=== PATIENT | female | born 1940 | race Caucasian/White ===

== ENCOUNTER 2017-12-11 17:41 | Inpatient (IN) | payer MEDICARE, OTHER ==
[~2017-12-11] VITALS: Ht 162.6 cm; Wt 73.6 kg
--- NOTE | ~2017-12-11 | HP ---
PATIENT: LUCILA NGUYEN MEDICAL RECORD: [id number] ACCOUNT: [id number] LOCATION:[place] [address] : 44 ADMISSION DATE: 12/11/17 PCP: ANDREY SWANN MD HISTORY AND PHYSICAL EXAMINATION REASON FOR ADMISSION: Cough and fever. HISTORY OF PRESENT ILLNESS: The patient is a 77-year-old female, a patient of Dr. Andrey Swann, with a history of valvular heart disease. She states she had her aortic valve cleaned out when she was 28 and then had replacement in 1998 at [facility]. There is a question of aortic valve, mitral valve surgery as well but need to confirm that. Nonetheless, she is on Coumadin. She had lots of family in for the last week with little ones. She had cough, congestion, fever to 101. This lasted for about 24 hours, she coughed up some bloody sputum and came to the ED. She is on Coumadin. She has been fatigued but denies diarrhea or any easy bruisability. 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 PAST SURGICAL HISTORY: Pacemaker placement, cholecystectomy, hysterectomy, , mitral valve replacement and , question of aortic valve replacement, vaccine received Prevnar and Pneumovax. FAMILY HISTORY: Father at 80, hypertension, pneumonia. Mother at 88 with breast cancer and hypertension. SOCIAL HISTORY: She is . Smoked 1 cigarette in her lifetime, nondrinker. She is . Her is 90 years old and living well for his age. MEDICATIONS: Coumadin 5 mg Tuesday, Tuesday, 2.5 mg other days, Rythmol 150 mg p.o. b.i.d., clonidine 0.2 mg p.o. b.i.d., Lumigan ophthalmic drops 0.01% one drop OU at bedtime, Betimol 0.5% ophthalmic drop 1 drop each eye daily, vitamin C 500 mg daily, vitamin D 1000 unit tablet daily, allopurinol 300 mg daily, Soma 350 mg at h.s. p.r.n. low back pain, and aspirin 81 mg daily. REVIEW OF SYSTEMS: CONSTITUTIONAL: Fever as mentioned above. Fatigue. Fair appetite. HEENT: No recent visual change, sinus congestion, or sore throat. RESPIRATORY: Denies shortness of breath. Had cough productive of yellow-green sputum with some blood streaking. No cristal hemoptysis. Denies chest pain. CARDIAC: No exertional chest pain, claudication, edema or palpitations. GASTROINTESTINAL: No nausea, vomiting, change in stools or blood per rectum. GENITOURINARY: No dysuria. She has mild incontinence. GYNECOLOGIC: No vaginal bleeding. ENDOCRINE: Denies polyuria, polydipsia, heat or cold intolerance. NEUROLOGIC: No history of recent motor or sensory deficits. Remote TIA but no residual. Denies history of seizures. PHYSICAL EXAMINATION: VITAL SIGNS: Height is 5 feet 4 inches. Blood pressure is 140/80, weight 162 HISTORY AND PHYSICAL [id number] GROSS-DOMINIC,LUCILA GILB pounds or 73.6 kilograms. Heart rate of 90 with ectopic beat. HEENT: Normocephalic. Eyes are clear. NECK: No bruits or masses. CHEST: Has crackles in the bases bilaterally and faint wheezes on forced expiration. No E to A change. HEART: Irregular rate without gallop with mechanical aortic click murmur noted. ABDOMEN: Soft, nontender. EXTREMITIES: No CCE. GYNECOLOGIC: Deferred. NEUROLOGIC: She is oriented to person, place, and time. Cranial nerves are intact. Gait normal. No deficits appreciated. INTEGUMENT: No petechiae. LABORATORY DATA: White count 5500 with normal diff, H&H is 11.4 and 35.8 with MCV of 89. Chemistry: Potassium 4.5, BUN and creatinine 12 and 1, glucose 124 nonfasting. Troponin was 0.453 and CPK and MB were normal. TSH is 0.52, normal. D-dimer is 0.53. INR was not obtained in the ED. Urine 0-5 red and white cells with a few bacteria. Influenza A and B rapid screens are negative. IMAGING: One-view chest x-ray showed mild prominence of interstitial lung markings. CT of chest shows postoperative changes of mitral valve replacement, heart upper limits size. Calcified plaque in the thoracic aorta and mediastinal lymph nodes, patchy airspace disease in the upper and lower lobes, which may represent edema or pneumonia. ASSESSMENT: 1. Pneumonia with hemoptysis. 2. History of mitral valve replacement times 2 on anticoagulation. 3. Sick sinus syndrome. 4. Atrial fibrillation. 5. Hypertension. PLAN: We will monitor for increased hemoptysis. We will check INR/BNP, cover with IV antibiotics currently and updrafts. TRANSINT:[id number] Voice Confirmation ID: [id number] DOCUMENT ID: [id number] HISTORY AND PHYSICAL [id number] LUCILA NGUYEN TIMOTHY MD at 1744 CC: [id number] DICTATION DATE: 12/12/17 0759 PIPING BLOCKER: 12/12/17 1013 ADM IN [facility] [address] [place] [id number]
[~2017-12-11 17:41] MED LIST: ASCORBIC ACID500 MG PO; BAYER CHEWABLE81 MG PO; BETIMOL15 ML EACH EYE; CATAPRES0.2 MG PO; CO Q-10100 MG PO; COUMADIN5 MG PO; FISH OIL 1,2001 CAP PO; LOVENOX30 MG/0.3 SC; LOVENOX40 MG/0.4 SC; LUMIGAN 0.01%2.5 ML EACH EYE; RYTHMOL150 MG PO; VITAMIN D5000 UNIT; ZYLOPRIM300 MG PO
[2017-12-11 18:47] LABS: BASOPHILS 0.5 % (0-2); EOSINOPHILS 1.8 % (0-7); HEMATOCRIT 35.8 % (36.0-48.0); HEMOGLOBIN 11.4 g/dL (12-16); IMMATURE GRANULOCYTES 0.2 % (0-5); LYMPHOCYTES 21.8 % (15-50); MCH 28.4 pg (26.0-34.0); MCHC 31.8 g/dL (31.0-37.0); MCV 89.1 fL (80.0-100.0); MEAN PLATELET VOLUME 10.9 fL (7.4-10.4); MONOCYTES 15.6 % (2-11); NEUTROPHILS 60.1 % (40-80); PLATELET COUNT 203 10x3/uL (130-400); RBC 4.02 10x6/uL (4.00-5.40); RDW 16.6 % (11.5-14.5); WBC 5.5 10x3/uL (4.8-10.8)
[2017-12-11 19:02] LABS: ALBUMIN 3.3 g/dL (3.4-5.0); ALKALINE PHOSPHATASE 78 U/L (46-116); ALT (SGPT) 18 U/L (10-68); BILIRUBIN - TOTAL 0.39 mg/dL (0.2-1.3); CALC OSMOLALITY 279 mosm/kg (275-300); CALCIUM 8.9 mg/dL (8.5-10.1); CARBON DIOXIDE 28.1 mmol/L (21.0-32.0); CHLORIDE - SERUM 105 mmol/L (98-107); GLUCOSE 124 mg/dL (74-106); POTASSIUM - SERUM 4.5 mmol/L (3.5-5.1); PROTEIN - SERUM 7.3 g/dL (6.4-8.2); SODIUM 140 mmol/L (136-145); UREA NITROGEN 12 mg/dL (7-18); eGFR NON AFRICAN AMERICAN 57 mL/min (90-120)
[2017-12-11 19:19] LABS: CKMB 2.2 U/L (0.0-3.6); CREATINE KINASE 57 UL (21-215); THYROID STIMULATING HORMONE 0.52 uIU/mL (0.36-3.74)
[2017-12-11 19:30] LABS: TROPONIN-I 0.453 ng/mL (0.000-0.060)
[2017-12-11 19:35] VITALS: BP 183/76
[2017-12-11 20:09] LABS: APPEARANCE CLEAR (CLEAR); BILIRUBIN NEGATIVE (NEGATIVE); COLOR YELLOW (YELLOW); GLUCOSE NEGATIVE (NEGATIVE); KETONE NEGATIVE (NEGATIVE); NITRITE NEGATIVE (NEGATIVE); PROTEIN NEGATIVE (NEGATIVE); SPECIFIC GRAVITY 1.005 (1.005-1.020); UROBILINOGEN NORMAL (NORMAL)
[2017-12-11 20:10] LABS: WHITE CELLS - URINE 0-5 /hpf (0-5)
[2017-12-11 20:11] LABS: RED CELLS - URINE 0-5 /hpf (0-5)
[2017-12-11 20:12] LABS: BACTERIA FEW /hpf (NONE SEEN)
[2017-12-11 21:52] VITALS: BP 159/77
[2017-12-11 22:17] VITALS: BP 170/58
[2017-12-11] MEDS ORDERED: COUMADIN5 MG PO (23:30)
[2017-12-11] MEDS ORDERED: COUMADIN2.5 MG PO (23:32)
[2017-12-11 23:38] VITALS: BP 182/83; Ht 162.6 cm; Wt 73.6 kg
[2017-12-12 05:30] LABS: BASOPHILS 0.2 % (0-2); EOSINOPHILS 1.6 % (0-7); HEMOGLOBIN 10.4 g/dL (12-16); LYMPHOCYTES 25.8 % (15-50); MCH 27.9 pg (26.0-34.0); MCHC 31.5 g/dL (31.0-37.0); MCV 88.5 fL (80.0-100.0); MEAN PLATELET VOLUME 10.5 fL (7.4-10.4); MONOCYTES 16.3 % (2-11); NEUTROPHILS 56.1 % (40-80); PLATELET COUNT 180 10x3/uL (130-400); RBC 3.73 10x6/uL (4.00-5.40); RDW 16.7 % (11.5-14.5); WBC 4.4 10x3/uL (4.8-10.8)
[2017-12-12 05:39] VITALS: BP 155/56
[2017-12-12 05:52] LABS: ALBUMIN 2.9 g/dL (3.4-5.0); BILIRUBIN - TOTAL 0.44 mg/dL (0.2-1.3); CALCIUM 8.4 mg/dL (8.5-10.1); CARBON DIOXIDE 23.3 mmol/L (21.0-32.0); CREATININE - SERUM 0.8 mg/dL (0.6-1.3); PROTEIN - SERUM 6.6 g/dL (6.4-8.2)
[2017-12-12 06:14] LABS: ANION GAP 15.5 mmol/L (8-16); POTASSIUM - SERUM 3.8 mmol/L (3.5-5.1)
[2017-12-12 07:22] VITALS: BP 131/82
[2017-12-12 08:23] LABS: APTT 52.4 SECONDS (22.8-39.4); INR 1.83 (0.85-1.17); PROTIME 20.6 SECONDS (11.6-15.0)
[2017-12-12 11:10] VITALS: BP 168/66
[2017-12-12 15:25] VITALS: BP 112/70
[2017-12-12 20:40] VITALS: BP 85/40
[2017-12-13 07:25] VITALS: BP 163/74
[2017-12-13 11:24] VITALS: BP 139/68
[2017-12-13 14:56] VITALS: BP 102/62
[2017-12-13 20:00] VITALS: BP 158/77
[2017-12-14 07:16] VITALS: BP 172/83
[2017-12-14 11:14] VITALS: BP 158/72
[2017-12-14 15:06] VITALS: BP 103/80
[2017-12-14] MEDS ORDERED: MUCINEX600 MG PO (16:58)
[2017-12-14] MEDS ORDERED: FUROSEMIDE20 MG PO (16:59)
[2017-12-14] MEDS ORDERED: K-TAB10 MEQ PO (17:00)
[2017-12-14] MEDS ORDERED: CEFUROXIME250 MG PO (17:02)
== END 2017-12-14 18:41 | disposition home or self-care (01) | DRG 194 ==
LOC: D.ER 17:41 → D.M3 21:36 → D.EDHOLD 21:36 → D.M3 22:00
PROVIDERS: Emergency Medicine; Family Medicine
DX: J18.9 Pneumonia, unspecified organism (principal); R04.2 Hemoptysis; I10 Essential (primary) hypertension; K59.09 Other constipation; Z79.01 Long term (current) use of anticoagulants; I48.91 Unspecified atrial fibrillation; Z78.0 Asymptomatic menopausal state; Z95.2 Presence of prosthetic heart valve; Z95.0 Presence of cardiac pacemaker; Z86.73 Personal history of transient ischemic attack (TIA), and cerebral infarction without residual deficits

== ENCOUNTER 2018-06-02 18:18 | Inpatient (IN) | payer MEDICARE, OTHER ==
[~2018-06-02] VITALS: Ht 162.6 cm; Wt 72.7 kg
[~2018-06-02 18:18] MED LIST changes: +CEFUROXIME250 MG PO; +COUMADIN2.5 MG PO; +FUROSEMIDE20 MG PO; +K-TAB10 MEQ PO; +MUCINEX600 MG PO; +VITAMIN D31000 UNIT PO; -VITAMIN D5000 UNIT
[2018-06-02 19:08] LABS: BASOPHILS 1.2 % (0-2); EOSINOPHILS 2.7 % (0-7); HEMATOCRIT 37.8 % (36.0-48.0); HEMOGLOBIN 11.9 g/dL (12-16); IMMATURE GRANULOCYTES 0.2 % (0-5); LYMPHOCYTES 36.4 % (15-50); MCH 28.2 pg (26.0-34.0); MCHC 31.5 g/dL (31.0-37.0); MCV 89.6 fL (80.0-100.0); MEAN PLATELET VOLUME 10.5 fL (7.4-10.4); NEUTROPHILS 48.5 % (40-80); RBC 4.22 10x6/uL (4.00-5.40); RDW 15.9 % (11.5-14.5); WBC 4.8 10x3/uL (4.8-10.8)
[2018-06-02 19:10] VITALS: BP 205/84
[2018-06-02 19:13] LABS: APTT 68.7 SECONDS (22.8-39.4); INR 3.27 (0.85-1.17); PROTIME 32.5 SECONDS (11.6-15.0)
[2018-06-02 19:27] LABS: PLATELET COUNT 243 10x3/uL (130-400)
[2018-06-02 19:29] LABS: ALBUMIN 3.7 g/dL (3.4-5.0); ALKALINE PHOSPHATASE 84 U/L (46-116); ALT (SGPT) 19 U/L (10-68); BILIRUBIN - TOTAL 0.33 mg/dL (0.2-1.3); CALC OSMOLALITY 278 mosm/kg (275-300); CALCIUM 8.5 mg/dL (8.5-10.1); CARBON DIOXIDE 27.8 mmol/L (21.0-32.0); CHLORIDE - SERUM 102 mmol/L (98-107); CREATININE - SERUM 1.1 mg/dL (0.6-1.3); GLUCOSE 122 mg/dL (74-106); PROTEIN - SERUM 7.5 g/dL (6.4-8.2); SODIUM 137 mmol/L (136-145); UREA NITROGEN 24 mg/dL (7-18); eGFR NON AFRICAN AMERICAN 51 mL/min (90-120)
[2018-06-02 19:30] VITALS: BP 175/75
[2018-06-02 19:37] LABS: CREATINE KINASE 54 UL (21-215); MAGNESIUM - SERUM 2.1 mg/dL (1.8-2.4); THYROID STIMULATING HORMONE 2.89 uIU/mL (0.36-3.74)
[2018-06-02 19:42] LABS: TROPONIN-I < 0.017 ng/mL (0.000-0.060)
[2018-06-02 19:50] VITALS: BP 193/82
[2018-06-02 20:30] VITALS: BP 187/69
[2018-06-03] VITALS (7 sets, daily range): BP systolic 145–187; BP diastolic 53–96; Ht 162.6 cm; Wt 72.7 kg
[2018-06-04 04:30] VITALS: BP 150/81
[2018-06-04 09:22] VITALS: BP 202/98
[2018-06-04 09:50] LABS: INR 3.19 (0.85-1.17); PROTIME 31.9 SECONDS (11.6-15.0)
[2018-06-04 13:41] VITALS: BP 98/68
[2018-06-04 17:32] VITALS: BP 99/64
[2018-06-04 20:00] VITALS: BP 175/79
[2018-06-05] VITALS: BP 134/44
[2018-06-05 05:00] VITALS: BP 174/61
[2018-06-05 05:28] LABS: BASOPHILS 0.7 % (0-2); EOSINOPHILS 3.6 % (0-7); HEMATOCRIT 37.1 % (36.0-48.0); HEMOGLOBIN 11.7 g/dL (12-16); IMMATURE GRANULOCYTES 0.2 % (0-5); MCH 28.1 pg (26.0-34.0); MCHC 31.5 g/dL (31.0-37.0); MEAN PLATELET VOLUME 11.3 fL (7.4-10.4); MONOCYTES 14.5 % (2-11); PLATELET COUNT 241 10x3/uL (130-400); RBC 4.17 10x6/uL (4.00-5.40); RDW 16.2 % (11.5-14.5); WBC 4.4 10x3/uL (4.8-10.8)
[2018-06-05 05:35] LABS: ANION GAP 9.7 mmol/L (8-16); CALCIUM 8.7 mg/dL (8.5-10.1); CARBON DIOXIDE 29.1 mmol/L (21.0-32.0); CREATININE - SERUM 0.9 mg/dL (0.6-1.3); POTASSIUM - SERUM 3.8 mmol/L (3.5-5.1)
[2018-06-05 05:46] LABS: INR 2.88 (0.85-1.17); PROTIME 29.4 SECONDS (11.6-15.0)
[2018-06-05 08:46] VITALS: BP 155/63
--- NOTE | 2018-06-05 10:59 | MORECARE ---
CASE MANAGEMENT DISCHARGE SUMMARY PATIENT: LUCILA WAGNER UNIT: [id number] ADM DATE: 06/04/18 AGE: 78 : 42 SEX: F ROOM/BED: D.2101 AUTHOR: CLOTILDE MAXWELL PHYSICIAN: REFERRING PHYSICIAN: RACHEL MUARICIO MD DATE OF SERVICE: 06/05/18 Discharge Plan Patient Name: LUCILA WAGNER Facility: [facility]:[place] : 1940 Planned Disposition: Home Anticipated Discharge Date: 06/05/18 Discharge Date: 06/05/2018 Expected LOS: 1 Initial Reviewer: [email or web address] Initial Review Date: 06/05/2018 Generated: 06/05/18 11:58 am DCPIA - Discharge Planning Initial Assessment Updated by [email or web address]: Álvaro Cleaning on 06/05/18 10:56 am * Is the patient Alert and Oriented? Yes * How many steps to enter\exit or inside your home? * PCP DR. LEROY * Pharmacy [facility] * Preadmission Environment Home with Family * ADLs Independent * Equipment None * Other Equipment NO MEDICAL EQUIPMENT PROVIDER PREFERENCE * List name and contact numbers for known caregivers / representatives who currently or will assist patient after discharge: Torsten Edmondsell, spouse, * Verbal permission to speak to the caregivers and representatives has been obtained from the patient. N/A * Please name any agencies selected above. NONE * Additional services required to return to the preadmission environment? No * Can the patient safely return to the preadmission environment? Yes * Has this patient been hospitalized within the prior 30 days at any hospital? No Patient Name: LUCILA WAGNER Page [id number] at 1059 All edits/amendments must be made on the electronic document DICTATION DATE: 06/05/181057 AUDIOVISUAL PRODUCTION SPECIALIST: DUYEN 06/05/18 1058 RPT#: [id number] DC DATE:06/05/18 STATUS: DIS IN [facility] [address] [place] [address] END OF REPORT
--- NOTE | 2018-06-05 11:06 | MORECARE ---
CASE MANAGEMENT DISCHARGE SUMMARY PATIENT: LUCILA WAGNER UNIT: [id number] ADM DATE: 06/04/18 AGE: 78 : 42 SEX: F ROOM/BED: D.3245 AUTHOR: ALISSA,DOC PHYSICIAN: REFERRING PHYSICIAN: RACHEL MAURICOI MD DATE OF SERVICE: 06/05/18 Discharge Plan Patient Name: LUCILA WAGNER Facility: [facility]:[place] : 1940 Planned Disposition: Home Anticipated Discharge Date: 06/05/18 Discharge Date: 06/05/2018 Expected LOS: 1 Initial Reviewer: [email or web address] Initial Review Date: 06/05/2018 Generated: 06/05/18 12:06 pm Comments DCP- Discharge Planning Updated by [email or web address]: Álvaro Cleaning on 06/05/18 10:[address] Patient Name: LUCILA WAGNER Admission Status: ER Accout number: [id number] Admission Date: 06-04-2018 : 1940 Admission Diagnosis: Attending: RACHEL MAURICIO Current LOS: 1 Anticipated DC Date: 06-05-2018 Planned Disposition: Home Primary Insurance: MEDICARE A & B Discharge Planning Comments: CM MET WITH PT IN ROOM TO DISCUSS DISCHARGE PLANNING AND NEEDS. LUCILA NGUYEN provided verbal consent to discuss current and ongoing needs with/in the presence of: SPOUSE, SILVEIRO. PT REPORTS LIVING AT HOME INDEPENDENTLY WITH SPOUSE. PT HAS NO MEDICAL EQUIPMENT AND NO OUTSIDE SERVICES ASSISTING IN THE HOME. CM DISCUSSED AVAILABILITY OF HOME HEALTH, REHAB SERVICES AND MEDICAL EQUIPMENT. PT DENIES DISCHARGE NEEDS, REPORTS HER SPOUSE IS HERE AND WILL PICK HER UP FOR DISCHARGE HOME TODAY. PT REPORTS BEING UNHAPPY WITH CARE IN EMERGENCY ROOM, THAT MEDICATIONS WERE NOT PROVIDED OR DOCUMENTED TIMELY AND ALSO UNHAPPY THAT THE FLOOR NURSE BROUGHT IN EYE DROPS TO GIVE TO PT THAT WERE NOT PRESCRIBED TO PT AND THEN THE NURSE LEFT THEM IN ROOM; PT DIRECTED CM TO THE TOP OF THE SHARPS CONTAINER WHERE A BOX WITH MEDICATION WAS LABELED WITH ANOTHER PT'S NAME. CM APOLOGIZED FOR PT'S EXPERIENCE AND OFFERED TO ASSIST IF POSSIBLE. PT'S SPOUSE ASKED TO SPEAK TO HOSPITAL COORDINATING PRODUCER PRIOR TO LEAVING HOSPITAL TODAY. CM NOTIFIED READING INTERVENTION TEACHER BOUCHRA OF REQUEST. CM PROVIDED BOX OF MEDICATION FROM PT'S ROOM TO FARMWORKER BULBS AND RN VINCENT AMES. Bump Grader Operator: Álvaro Cleaning DCPIA - Discharge Planning Initial Assessment Updated by [email or web address]: Álvaro Cleaning on 06/05/18 10:56 am * Is the patient Alert and Oriented? Yes * How many steps to enter\exit or inside your home? * PCP DR. LEROY * [facility]acy [facility] * Preadmission Environment Home with Family * ADLs Independent * Equipment None * Other Equipment NO MEDICAL EQUIPMENT PROVIDER PREFERENCE * List name and contact numbers for known caregivers / representatives who currently or will assist patient after discharge: Silverio Aparicio, spouse, * Verbal permission to speak to the caregivers and representatives has been obtained from the patient. N/A * Please name any agencies selected above. NONE * Additional services required to return to the preadmission environment? No * Can the patient safely return to the preadmission environment? Yes * Has this patient been hospitalized within the prior 30 days at any hospital? No Last DP export: 06/05/18 9:59 a Patient Name: LUCILA WAGNER Page [id number] at 1106 All edits/amendments must be made on the electronic document DICTATION DATE: 06/05/181105 FORM GRADER OPERATOR: DUYEN 06/05/181105 RPT#: [id number] OK DATE:06/05/18 STATUS: DIS IN [facility] [address] [place] [address] END OF REPORT
== END 2018-06-05 10:19 | disposition home or self-care (01) | DRG 69 ==
LOC: D.ER 18:18 → D.EDHOLD 19:52 → OBSVTIME 19:52 → D.M2 21:06
PROVIDERS: Family Medicine; ADMIT Family Medicine; ATTEND Family Medicine
DX: G45.9 Transient cerebral ischemic attack, unspecified (principal); I48.2 Chronic atrial fibrillation; R53.1 Weakness; R55 Syncope and collapse; Z79.01 Long term (current) use of anticoagulants; Z95.0 Presence of cardiac pacemaker; Z95.2 Presence of prosthetic heart valve

== ENCOUNTER → 2018-12-20 10:05 | Outpatient (CLI) | payer MEDICARE, OTHER ==
[2018-06-03 18:05] VITALS: BMI 27.4
== END | disposition home or self-care (01) ==
LOC: D.HCCECHO 10:05 → D.HCCARDIO 10:30 → D.HCCECHO 10:30
PROVIDERS: ATTEND Internal Medicine Cardiovascular Disease
DX: Z95.2 Presence of prosthetic heart valve (principal)